=== PATIENT | male | born 1960 | race Caucasian/White ===

== ENCOUNTER 2022-08-12 07:22 | Emergency (ER) | payer OTHER ==
[~2022-08-12] VITALS: Ht 165.1 cm; Wt 108.9 kg
[~2022-08-12 07:22] MED LIST: ALPHA LIPOIC A300 MG PO; COL-RITE250 MG PO; FOLIC ACID1 MG PO; KETOROLAC30 MG/1 M2 INJ; LEXAPRO20 MG PO; METHOTREXATE2.5 MG PO; NAPROSYN500 MG PO; NORCO 5-325 TA1 EACH PO; OMEPRAZOLE20 MG PO; PROAIR RESPICL90 MCG IH; REMERON30 MG PO; SINGULAIR10 MG PO; TERBINAFINE15 GM TOP; ULTRAM50 MG PO; VISTARIL50 MG PO; ZOCOR10 MG PO
== END 2022-08-12 12:23 | disposition short-term general hospital (02) ==
LOC: ED 07:22
DX: A41.9 Sepsis, unspecified organism (principal); R65.21 Severe sepsis with septic shock; L02.11 Cutaneous abscess of neck; Z20.822 Contact with and (suspected) exposure to COVID-19; Z87.891 Personal history of nicotine dependence
CPT/HCPCS: 31500; 36415; 36600; 51702; 70450; 70491; 71045; 80053; 81001; 82803; 83605; 85025; 85610; 85730; 87502; 94002; 99285-25; C9803; J0692; J2704; J3370; J7030; J7060; Q9967; U0003